=== PATIENT | female | born 1985 | race Caucasian/White ===

== ENCOUNTER 2023-09-08 09:45 | Inpatient (IN) | payer OTHER ==
[~2023-09-08] VITALS: Ht 160 cm; Wt 85.0 kg
[~2023-09-08 09:45] MED LIST: ZITHROMAX250 MG PO
[2023-09-08 10:11] VITALS: BP 139/80
[2023-09-08] MEDS ORDERED: CEFDINIR300 MG PO (11:01)
[2023-09-08] MEDS ORDERED: VIBRAMYCIN100 MG PO (11:01)
[2023-09-08] MEDS ORDERED: Acetaminophen/Oxycodone 5 MG/325 MG TABLET PO ONE (11:15)
[2023-09-08 11:38] LABS: BASO # 0.1 10*3/uL (0.0-0.1); BASO % 0.6 % (0.0-1.0); EOS # 0.3 10*3/uL (0.0-0.4); HEMATOCRIT 45.7 % (37.0-47.0); MEAN CELL VOLUME 91.6 fl (81.0-99.0); MEAN CORPUSCULAR HGB 29.7 pg (27.0-31.0); MEAN CORPUSCULAR HGB CONC 32.4 g/dl (33.0-37.0); MEAN PLATELET VOLUME 8.3 fl (9.6-12.3); MONO # 0.9 10*3/uL (0.1-1.0); MONO % 6.3 % (3.0-9.0); NEUT % 69.8 % (47.0-73.0); PLATELET COUNT AUTOMATED 369 10*3/uL (130-400); RED BLOOD COUNT 4.99 10*6/uL (4.10-5.10); RED CELL DISTRI WIDTH 11.9 % (0-14.5); WHITE BLOOD COUNT 14.3 10*3/uL (4.8-10.8)
[2023-09-08 11:59] LABS: ALKALINE PHOSPHATASE 80 U/L (46-116); BUN 10 mg/dl (9-23); CHLORIDE 106 mmol/L (98-107); SGPT/ALT 7 U/L (5-49); TOTAL PROTEIN 7.1 gm/dL (6.0-8.0)
[2023-09-08 12:00] LABS: BETA-HCG, QUANT < 3.0 mIU/mL (3-10)
[2023-09-08] MEDS ORDERED: Piperacillin Sodium/Tazobact 50 ML IV ONE (13:10)
[2023-09-08] MEDS ORDERED: SODIUM CHLORIDE 0.9% 1,000 ML IV ONE (13:10)
[2023-09-08] MEDS ORDERED: Vancomycin Hydrochloride 250 ML IV ONE (13:10)
[2023-09-08] MEDS ORDERED: Ondansetron Hydrochloride 4 MG/2 ML VIAL IV PRN (14:25)
[2023-09-08] MEDS ORDERED: TEMAZEPAM 15 MG CAP PO PRN (14:25)
[2023-09-08] MEDS ORDERED: ACETAMINOPHEN 650 MG SUPP R PRN (14:25)
[2023-09-08] MEDS ORDERED: BISACODYL 5 MG TAB PO PRN (14:25)
[2023-09-08] MEDS ORDERED: Acetaminophen/Hydrocodone 5 MG/325 MG TABLET PO PRN (14:25)
[2023-09-08] MEDS ORDERED: Magnesium Hydroxide 30 ML UDC PO PRN (14:25)
[2023-09-08] MEDS ORDERED: ACETAMINOPHEN 325 MG TAB PO PRN (14:25)
[2023-09-08] MEDS ORDERED: BISACODYL 10 MG SUPP R PRN (14:25)
[2023-09-08] MEDS ORDERED: Piperacillin Sodium/Tazobact 50 ML IV SCH (20:00)
[2023-09-08 21:45] VITALS: BP 104/57
[2023-09-09] VITALS (11 sets, daily range): BP systolic 97–136; BP diastolic 52–93
[2023-09-09] MEDS ORDERED: VANCOMYCIN/WATER FOR INJ (PEG) 250 ML IV SCH
[2023-09-09 06:41] LABS: BASO # 0.1 10*3/uL (0.0-0.1); BASO % 0.7 % (0.0-1.0); EOS # 0.3 10*3/uL (0.0-0.4); EOS % 2.2 % (1.0-4.0); HEMATOCRIT 41.5 % (37.0-47.0); LYMPH # 3.2 10*3/uL (1.3-4.4); LYMPH % 23.8 % (27.0-41.0); MEAN CELL VOLUME 91.2 fl (81.0-99.0); MEAN CORPUSCULAR HGB 30.3 pg (27.0-31.0); MEAN CORPUSCULAR HGB CONC 33.3 g/dl (33.0-37.0); MEAN PLATELET VOLUME 8.2 fl (9.6-12.3); MONO # 0.9 10*3/uL (0.1-1.0); MONO % 6.7 % (3.0-9.0); NEUT % 66.2 % (47.0-73.0); PLATELET COUNT AUTOMATED 319 10*3/uL (130-400); RED BLOOD COUNT 4.55 10*6/uL (4.10-5.10); WHITE BLOOD COUNT 13.6 10*3/uL (4.8-10.8)
[2023-09-09 07:25] LABS: ALKALINE PHOSPHATASE 67 U/L (46-116); BUN 9 mg/dl (9-23); CHLORIDE 108 mmol/L (98-107); CHOLESTEROL 151 mg/dL (<200); LDL CHOLESTEROL 91 mg/dL (9-159); POTASSIUM 4.3 mmol/L (3.4-5.1); TOTAL PROTEIN 6.2 gm/dL (6.0-8.0); TRIGLYCERIDES 108 mg/dl (<150)
[2023-09-09 07:29] LABS: SGPT/ALT < 7 U/L (5-49)
[2023-09-09] MEDS ORDERED: Nicotine 21 MG PATCH T SCH (10:00)
[2023-09-09] MEDS ORDERED: Lactated Ringer's Solution 500 ML IV ONE (13:50)
[2023-09-09] MEDS ORDERED: BUPIVACAINE 0.5% 10 ML VIAL ONE (14:07)
[2023-09-09] MEDS ORDERED: EPINEPHrine/Lidocaine Hydroc 20 ML VIAL ONE (14:08)
[2023-09-09] MEDS ORDERED: HYDROmorphONE Hydrochloride 1 MG/ML SYR IV ONE (14:35)
[2023-09-09] MEDS ORDERED: HYDROmorphONE Hydrochloride 1 ML IV ONE ×2 (14:35→14:54)
[2023-09-09] MEDS ORDERED: PROPOFOL 200 MG/20 ML VIAL IV ONE (14:51)
[2023-09-09] MEDS ORDERED: Midazolam Hydrochloride 2 MG/2 ML VIAL IV ONE (14:51)
[2023-09-09] MEDS ORDERED: Ondansetron Hydrochloride 4 MG/2 ML VIAL IV ONE (16:10)
[2023-09-10] VITALS: BP 106/62
[2023-09-10 08:00] VITALS: BP 113/93
[2023-09-10] MEDS ORDERED: AMOX-CLAV 875-1 EACH PO (10:33)
[2023-09-10 12:00] VITALS: BP 124/82
[2023-09-10] MEDS ORDERED: HYDROCODONE-AC1 EAC1 PO (12:41)
[2023-09-10] MEDS ORDERED: Vancomycin Hydrochloride 1,000 MG in SODIUM CHLORIDE 0.9% 250 ML IV SCH (20:00)
== END 2023-09-10 14:31 | disposition home or self-care (01) | DRG 584 ==
LOC: ED 09:45 → 4E 13:12 → EDHOLD 13:12 → 4E 19:34
PROVIDERS: Emergency Medicine; Student in an Organized Health Care Education/Training Program; ADMIT Internal Medicine; ATTEND Internal Medicine
PROC: 0H9T0ZZ Drainage of Right Breast, Open Approach (ICD-10-PCS; principal; 2023-09-09)
DX: N61.1 Abscess of the breast and nipple (principal); E44.1 Mild protein-calorie malnutrition; D72.829 Elevated white blood cell count, unspecified; E66.9 Obesity, unspecified; Z68.32 Body mass index [BMI] 32.0-32.9, adult; Z90.721 Acquired absence of ovaries, unilateral

== ENCOUNTER 2024-02-18 11:22 | Emergency (ER) | payer OTHER ==
[~2024-02-18] VITALS: Ht 160 cm; Wt 86.2 kg
[~2024-02-18 11:22] MED LIST changes: +AMOX-CLAV 875-1 EACH PO; +CEFDINIR300 MG PO; +HYDROCODONE-AC1 EAC1 PO; +VIBRAMYCIN100 MG PO
[2024-02-18] MEDS ORDERED: SEPTDS PO (11:47)
[2024-02-18] MEDS ORDERED: Sulfamethoxazole/Trimethopri 1 TAB TAB PO ONE (11:50)
[2024-02-18] MEDS ORDERED: NAPROSYN500 MG PO (11:50)
[2024-02-18] MEDS ORDERED: IBUPROFEN 800 MG TAB PO ONE (11:50)
== END 2024-02-18 11:51 | disposition home or self-care (01) ==
LOC: ED 11:22
DX: N61.1 Abscess of the breast and nipple (principal); F17.200 Nicotine dependence, unspecified, uncomplicated; Z88.8 Allergy status to other drugs, medicaments and biological substances; Z98.890 Other specified postprocedural states

== ENCOUNTER 2024-04-01 20:52 | Emergency (ER) | payer OTHER, MEDICAID ==
[~2024-04-01] VITALS: Ht 160 cm; Wt 82.1 kg
[~2024-04-01 20:52] MED LIST changes: +NAPROSYN500 MG PO; +SEPTDS PO
[2024-04-01] MEDS ORDERED: Ondansetron Hydrochloride 4 MG/2 ML VIAL IV ONE (21:20)
[2024-04-01] MEDS ORDERED: Ketorolac Tromethamine 15 MG/ML VIAL IV ONE ×2 (21:20→22:20)
[2024-04-01] MEDS ORDERED: SODIUM CHLORIDE 0.9% 1,000 ML IV ONE (21:20)
[2024-04-01 21:44] LABS: BASO # 0.1 10*3/uL (0.0-0.1); BASO % 0.5 % (0.0-1.0); EOS # 0.1 10*3/uL (0.0-0.4); EOS % 0.5 % (1.0-4.0); LYMPH # 2.4 10*3/uL (1.3-4.4); LYMPH % 12.9 % (27.0-41.0); MEAN CORPUSCULAR HGB 30.3 pg (27.0-31.0); MEAN CORPUSCULAR HGB CONC 33.7 g/dl (33.0-37.0); MEAN PLATELET VOLUME 8.6 fl (9.6-12.3); MONO # 0.8 10*3/uL (0.1-1.0); MONO % 4.3 % (3.0-9.0); NEUT # 15.4 10*3/uL (2.3-7.9); NEUT % 81.5 % (47.0-73.0); PLATELET COUNT AUTOMATED 418 10*3/uL (130-400); RED BLOOD COUNT 5.11 10*6/uL (4.10-5.10); RED CELL DISTRI WIDTH 12.2 % (0-14.5); WHITE BLOOD COUNT 18.9 10*3/uL (4.8-10.8)
[2024-04-01 21:45] LABS: BILIRUBIN Negative (Negative); BLOOD 2+ (Negative); CLARITY Turbid (Clear); COLOR Yellow (Yellow); GLUCOSE Negative (Negative); KETONE 1+ (Negative); LEUKO ESTERASE Trace (Negative); NITRITE Negative (Negative)
[2024-04-01 21:50] LABS: PH 8.5 (4.5-8.0)
[2024-04-01 21:54] LABS: BACTERIA 3+
[2024-04-01 21:55] LABS: POTASSIUM 3.3 mmol/L (3.4-5.1)
[2024-04-01] MEDS ORDERED: SODIUM CHLORIDE 0.9% 1,000 ML IV SCH (22:10)
[2024-04-01] MEDS ORDERED: Ceftriaxone Sodium 1 GM/10 ML SYR IV ONE (22:15)
== END 2024-04-02 10:07 | disposition short-term general hospital (02) ==
LOC: ED 20:52
PROVIDERS: Emergency Medicine
DX: A41.9 Sepsis, unspecified organism (principal); N13.2 Hydronephrosis with renal and ureteral calculous obstruction; R65.20 Severe sepsis without septic shock; N17.0 Acute kidney failure with tubular necrosis; R73.9 Hyperglycemia, unspecified; E87.20 Acidosis, unspecified; D72.829 Elevated white blood cell count, unspecified; N12 Tubulo-interstitial nephritis, not specified as acute or chronic; Z98.890 Other specified postprocedural states; F17.200 Nicotine dependence, unspecified, uncomplicated

== ENCOUNTER 2025-05-12 13:50 | Emergency (ER) | payer OTHER, MEDICAID ==
[~2025-05-12] VITALS: Ht 160 cm; Wt 81.2 kg
[2025-05-12] MEDS ORDERED: Lidocaine Hydrochloride 2% 10 ML AMP SC ONE (14:50)
[2025-05-12] MEDS ORDERED: Sulfamethoxazole/Trimethopri 1 TAB TAB PO ONE (14:50)
[2025-05-12] MEDS ORDERED: IBUPROFEN 800 MG TAB PO ONE (15:45)
[2025-05-12] MEDS ORDERED: SEPTDS PO (16:55)
[2025-05-12] MEDS ORDERED: Acetaminophen/Hydrocodone 5 MG/325 MG TABLET PO ONE (16:55)
[2025-05-12] MEDS ORDERED: MUPIROCIN 15 GM TUBE T SCH (18:00)
== END 2025-05-12 17:15 | disposition home or self-care (01) ==
LOC: ED 13:50
DX: H70.002 Acute mastoiditis without complications, left ear (principal); L72.3 Sebaceous cyst; F17.200 Nicotine dependence, unspecified, uncomplicated; Z23 Encounter for immunization